=== PATIENT | female | born 1955 | race Caucasian/White ===

== ENCOUNTER 2016-08-12 08:01 | Inpatient (IN) | payer OTHER ==
[~2016-08-12] VITALS: Ht 162.6 cm; Wt 82.4 kg
[~2016-08-12 08:01] MED LIST: ACETAMINOPHEN TAB 650MG DOSE (2X325MG) PO PRN; BISACODYL 10 MG SUPP PR PRN; LEVALBUTEROL 1.25 MG/0.5 ML CONCENTRATE NEB NEB PRN; NORCO, ANEXSIA 5/325MG TABLET (HYDROcodone/ACETAMINOPHEN) PO PRN; ONDANSETRON 4MG/2ML VIAL (J2405) IV PRN; PERCOCET 5MG/325MG TAB PO PRN
[2016-08-12] MEDS: MOM 30ML SUSPENSION UDC PO SCH (09:00)
[2016-08-12] MEDS: HEPARIN SOD (PORCINE) 5000 UNITS/ML VIAL SC SCH ×2 (09:00→20:51)
[2016-08-12] MEDS: DOCUSATE SODIUM 100 MG CAP PO SCH ×2 (09:00→20:53)
[2016-08-12 12:25] VITALS: BP 148/77
[2016-08-12] MEDS ORDERED: REST0.05 OU (13:03)
[2016-08-12] MEDS ORDERED: TYLE325T5 PO (13:03)
[2016-08-12] MEDS ORDERED: ATEN25TA PO (13:03)
[2016-08-12] MEDS ORDERED: LEVO88TA3 PO (13:03)
[2016-08-12] MEDS ORDERED: ADVI200T PO (13:03)
[2016-08-12] MEDS ORDERED: SIMV20TA2 PO (13:03)
[2016-08-12] MEDS ORDERED: METR0.00 TOP (13:04)
[2016-08-12 13:26] LABS: BASO # 0.1 K/mm3 (0.0-0.2); BASO % 0.9 % (0.0-1.0); EOS # 0.2 K/mm3 (0.0-0.50); EOS % 3.2 % (0.0-3.0); LARGE UNSTAINED CELL # 0.1 K/mm3 (0.0-0.4); LYMPH # 2.2 K/mm3 (1.5-4.5); LYMPH % 29.2 % (24.0-44.0); MEAN CORPUSCULAR HEMOGLOBIN 31.1 pg (27.0-33.0); MEAN CORPUSCULAR HGB CONC 33.7 g/dl (32.0-36.5); MEAN CORPUSCULAR VOLUME 92.4 fl (80.0-96.0); MONO # 0.4 K/mm3 (0.0-0.8); MONO % 6.1 % (0.0-5.0); NEUTROPHILS # 4.1 K/mm3 (1.8-7.7); NEUTROPHILS % 58.6 % (36.0-66.0); PLATELET COUNT, AUTOMATED 233 k/mm3 (150-450); RED CELL DISTRIBUTION WIDTH 12.5 % (11.5-14.5)
[2016-08-12 13:42] LABS: ANION GAP 10 MEQ/L (8-16); BLOOD UREA NITROGEN 18 MG/DL (7-18); CALCIUM LEVEL 9.2 MG/DL (8.5-10.1); CARBON DIOXIDE LEVEL 25 MEQ/L (21-32); CHLORIDE LEVEL 107 MEQ/L (98-107); CREATININE FOR GFR 0.73 MG/DL (0.55-1.02); GLOMERULAR FILTRATION RATE > 60.0 (>51); GLUCOSE, FASTING 93 MG/DL (70-105); POTASSIUM SERUM 4.3 MEQ/L (3.5-5.1); SODIUM LEVEL 142 MEQ/L (136-145)
[2016-08-12] MEDS ORDERED: LIDOCAINE 1% MDV 20ML VIAL As Ordered ONE (14:16)
[2016-08-12] MEDS: LEVALBUTEROL 1.25 MG/0.5 ML CONCENTRATE NEB NEB SCH ×2 (14:24→19:39)
[2016-08-12] MEDS: PANTOPRAZOLE 40MG TAB (PROTONIX) PO SCH (14:35)
--- NOTE | 2016-08-12 15:23 | REP ---
CHEST, TWO VIEWS: HISTORY: Pleural effusion. The lungs are clear. A small right pleural effusion is present. The heart is normal in size. The pulmonary vasculature is normal in appearance. The bony structure is intact. The patient is status post right mastectomy. IMPRESSION: Small right pleural effusion. Signed by Jd Leiva MD 08/12/2016 03:25 P
[2016-08-12 17:15] VITALS: BP 161/83
[2016-08-12 17:23] LABS: RBC PLEURAL FLUID < 10 (<10mm3 cells/uL); TNC PLEURAL FLUID 872 cells/uL (0-20)
--- NOTE | 2016-08-12 17:23 | REP ---
ULTRASOUND GUIDED RIGHT THYROID BIOPSY: The procedure was performed under the direct supervision of Dr. Geiger. The patient has a history of intensely increased uptake of activity involving the right thyroid seen on a previous PET scan performed at [facility] on 07/24/2016. The risks and benefits of the procedure were explained to the patient and informed consent was obtained. The right thyroid was localized using ultrasound guidance. The skin was prepped and draped in a sterile fashion. 1% Xylocaine was used as a local anesthetic. Using ultrasound guidance 4 fine-needle aspirations were obtained using 25-gauge needles. The patient tolerated the procedure well and there were no immediate complications. Reviewed by OCTAVIO Fay 08/13/2016 01:28 PEdited and Signed by Yovany Geiger MD 08/13/2016 08:04 P
[2016-08-12 17:24] LABS: BF DIFF IF INDICATED? YES (NO)
[2016-08-12 17:30] VITALS: BP 137/72
[2016-08-12] MEDS ORDERED: IBUPROFEN 400 MG TAB PO PRN (18:00)
[2016-08-12] MEDS: KETOROLAC 30 MG/ML VIAL (J1885) IV SCH ×2 (18:04→20:53)
[2016-08-12 18:34] LABS: LDH, BODY FLUID 115 U/L (NOT ESTABLISHED); TOTAL PROTEIN, BODY FLUID 4.4 G/DL (NOT ESTABLISHED)
[2016-08-12 19:13] LABS: CC BF DIFF EXAM UNSPUN
[2016-08-12 20:00] VITALS: BP 113/60
[2016-08-12 20:52] VITALS: BP 113/60
[2016-08-12] MEDS ORDERED: ATENOLOL 25 MG TAB PO SCH (21:00)
[2016-08-12] MEDS ORDERED: SIMVASTATIN 20 MG TAB PO SCH (21:00)
[2016-08-13] VITALS: BP 121/69
[2016-08-13] MEDS: LEVALBUTEROL 1.25 MG/0.5 ML CONCENTRATE NEB NEB SCH ×2 (01:11→07:07)
[2016-08-13] MEDS: KETOROLAC 30 MG/ML VIAL (J1885) IV SCH ×2 (02:49→09:00)
[2016-08-13 04:00] VITALS: BP 115/65
[2016-08-13 05:30] LABS: BASO % 0.3 % (0.0-1.0); EOS # 0.2 K/mm3 (0.0-0.50); EOS % 2.1 % (0.0-3.0); LARGE UNSTAINED CELL # 0.1 K/mm3 (0.0-0.4); LARGE UNSTAINED CELL % 1.2 % (0.0-4.0); LYMPH # 1.5 K/mm3 (1.5-4.5); LYMPH % 16.7 % (24.0-44.0); MEAN CORPUSCULAR HEMOGLOBIN 30.7 pg (27.0-33.0); MEAN CORPUSCULAR HGB CONC 33.5 g/dl (32.0-36.5); MEAN CORPUSCULAR VOLUME 91.5 fl (80.0-96.0); MONO # 0.5 K/mm3 (0.0-0.8); MONO % 5.5 % (0.0-5.0); NEUTROPHILS # 6.7 K/mm3 (1.8-7.7); NEUTROPHILS % 74.3 % (36.0-66.0); PLATELET COUNT, AUTOMATED 207 k/mm3 (150-450); RED CELL DISTRIBUTION WIDTH 12.5 % (11.5-14.5)
[2016-08-13 05:50] LABS: ANION GAP 9 MEQ/L (8-16); BLOOD UREA NITROGEN 17 MG/DL (7-18); CALCIUM LEVEL 8.1 MG/DL (8.5-10.1); CARBON DIOXIDE LEVEL 26 MEQ/L (21-32); CHLORIDE LEVEL 107 MEQ/L (98-107); CREATININE FOR GFR 0.81 MG/DL (0.55-1.02); GLOMERULAR FILTRATION RATE > 60.0 (>51); GLUCOSE, FASTING 96 MG/DL (70-105); POTASSIUM SERUM 3.9 MEQ/L (3.5-5.1); SODIUM LEVEL 142 MEQ/L (136-145)
[2016-08-13] MEDS ORDERED: LEVOTHYROXINE 0.088 MG TAB (88 MCG) PO SCH (06:00)
[2016-08-13 07:25] VITALS: BP 120/68
[2016-08-13] MEDS: PANTOPRAZOLE 40MG TAB (PROTONIX) PO SCH (09:00)
[2016-08-13] MEDS: DOCUSATE SODIUM 100 MG CAP PO SCH (09:00)
[2016-08-13] MEDS: HEPARIN SOD (PORCINE) 5000 UNITS/ML VIAL SC SCH (09:00)
[2016-08-13] MEDS: MOM 30ML SUSPENSION UDC PO SCH (09:00)
--- NOTE | 2016-08-13 09:14 | REP ---
TWO VIEW CHEST: Two views of the chest are performed and compared to prior study of 08/12/2016. Right inferior pigtail drainage catheter is again seen. There is no pneumothorax. There is mild elevation of the right hemidiaphragm with mild discoid atelectasis along the right hemidiaphragm. The cardiomediastinal silhouette is unremarkable and unchanged. Multiple metallic clips are seen in the axillary regions bilaterally. There are mild degenerative changes of the spine. IMPRESSION: Stable exam. Signed by Yovany Geiger MD 08/13/2016 08:05 P
--- NOTE | 2016-08-14 08:32 | HPE ---
DATE OF ADMISSION: 08/12/2016 CHIEF COMPLAINT: Right pleural effusion and cough. HISTORY OF PRESENT ILLNESS: The patient is a 61-year-old white female who was first found to have breast cancer in the left breast in 2005 and was found to have another breast cancer in the right breast. 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 She underwent chemotherapy with Adriamycin and Cytoxan, and then was found to have a lobular carcinoma of the right breast. This measured 7 cm. It too was ER positive, but IA negative and HER2 negative. She then underwent bilateral mastectomies with reconstruction. A few weeks ago she developed what was thought to be a cold with a cough and scant sputum production. This was not accompanied by fever, chills or sweats. It was also not accompanied by shortness of breath. There was no weight loss. No dysphagia. CT scan done of the chest showed her to have a right sided pleural effusion. This was attempted to be tapped at [facility] but without success. PET scan was also undertaken, which showed high uptake in the right thyroid. She was admitted today for drainage of her pleural effusion. My suspicion is that the pleural effusion is going to be fibrinous and it is going to need a TPA pleurolysis, as it could not be removed at [facility]. PAST MEDICAL HISTORY: 1. Hypothyroidism. 2. Hypertension. 3. Hypercholesterolemia. MEDICATIONS: At home: - atenolol 25 mg daily - ibuprofen 200 mg as needed for pain - Synthroid 88 mg daily - Restasis 0.5% OU as needed for dry eyes - simvastatin 20 mg at night - Tylenol 325 mg as needed for pain PAST SURGICAL HISTORY: The above mastectomies. FAMILY HISTORY: Father due to heart disease. Mother is alive and well. HABITS: Has never smoked. Denies alcohol use. 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 EXPOSURES: No dogs. She has one cat. She does have three birds at home. TRAVEL HISTORY: She has been to [place] in the remote past and to [facility]. She visited [facility] last year. REVIEW OF SYSTEMS: CONSTITUTIONAL: See history of present illness. Without fevers, chills, sweats, night sweats or weight loss. EYES: Without diplopia. Without amaurosis fugax. Without prior jaundice. NOSE: Without epistaxis. MOUTH: Has her own teeth. PULMONARY: See history of present illness. Without shortness of breath but with cough. Without sputum production. Without chest pain or chest discomfort. CARDIAC: Without prior myocardial infarction, but does have hypertension. Without angina. Without chest pain. Without intermittent claudication. Without orthopnea or paroxysmal nocturnal dyspnea. GASTROINTESTINAL: Without melena or hematochezia, diarrhea or constipation, nausea or vomiting. Without abdominal pain or hematemesis. GENITOURINARY: Without dysuria, hematuria, or prior history of renal stones. NEUROLOGIC: Without paresthesias, paralysis or prior seizures. PSYCHIATRIC: Without pathological anxieties, depressions, or psychoses. ENDOCRINE: Without diabetes, but with hypothyroidism. PHYSICAL EXAMINATION: Well developed, well nourished, white female in no acute distress. VITAL SIGNS: Temperature is 97.1, heart rate is 66 and in a sinus rhythm, respiratory rate of 18 without the use of accessory muscles. She is 99% saturated on room air. Blood pressure is 137/72. EYES: Pupils are equal, round and reactive to light. Extraocular muscles intact. Sclerae nonicteric. NOSE: Without deformity. MOUTH: Shows mucous membranes to be pink and moist. Lips and commissures without lesions. There is no thrush. NECK: Supple. There is no jugular venous distention (JVD). No subcutaneous emphysema. Trachea is midline. There is thyromegaly with a palpable mass just to the right of the sternal notch. She has 2+ carotid upstrokes without bruits or lymphadenopathy. LUNGS: Lungs show minimally decreased breath sounds in the right lower lobe. Percussion note is dull at the right base. I hear no other wheezes, rhonchi or rales. CARDIAC EXAM: Without murmurs, clicks, gallops or rubs. I cannot feel her point of maximum impulse (PMI). S1, S2 are normal. ABDOMEN: Soft, nontender. Bowel sounds positive. There is no hepatomegaly. No costovertebral angle tenderness. EXTREMITIES: Show no pretibial edema. No calf tenderness. No differential swelling of the upper extremities. SKIN: Warm, dry and perfused without cyanosis or mottling, including that of the nail beds and knees. NEUROLOGIC: Shows II through XII intact with gross motor and gross sensation intact. Gait is not tested. PSYCHIATRIC: Shows her to be awake and alert, oriented times three with appropriate mood and affect and conversational. INVESTIGATIONS: Her white count is 7.0 with a hemoglobin and hematocrit of 14.9 and 44.1. Platelet count is 223 and differential shows 58% neutrophils, 29% lymphocytes, 6% monocytes. There are no immature forms. No toxic granulations. Her chemistries show normal electrolytes with a BUN and creatinine of 18 and 0.73, glucose of 93 and calcium 9.2. Chest x-ray shows blunting of the right costophrenic angle. I see no other infiltrates. Left costophrenic angle is sharp. The lateral chest x-ray shows pleural effusion on the right side. There is evidence of her bilateral mastectomies with hemoclips subcutaneously on both sides. IMPRESSION: 1. New right sided pleural effusion. 2. Status post bilateral breast cancers and bilateral mastectomies. 3. Hypertension. 4. Hypothyroidism. 5. Thyroid mass. PLAN AND DISCUSSION: I will have x-ray place a pigtail catheter in the pleural effusion. If it does not drain, as I expect it will not, we will undertake a TPA pleurolysis. We will also do a needle biopsy of the thyroid.
--- NOTE | 2016-08-14 09:51 | DSES ---
DATE OF ADMISSION: 08/12/2016 DATE OF DISCHARGE: 08/13/2016 DISCHARGE DIAGNOSES: 1. Right pleural effusion, probably malignant. 2. Metastatic breast cancer to the spine. 3. Hypertension. 4. Hypothyroidism. 5. Thyroid mass, final pathology pending. HOSPITAL COURSE: The patient is a 61-year-old white female who was found to have breast cancer in 2005 in the left breast and then found to have another breast cancer in 2008. She underwent bilateral mastectomies with reconstruction. A few weeks prior to admission she developed what was thought was a cold with a cough. A CT scan was undertaken, which showed a moderate right-sided pleural effusion. This was attempted to be tapped in [facility] without success. She was therefore referred here. With the expectation that she was going to need a tPA pleurolysis, I admitted and asked x-ray to place a pigtail catheter in the right pleura. She eventually drained over 300 mL of fluid, which was found to be lymphocytic with 100% lymphocytes, normoglycemic and exudative with a serum lactic dehydrogenase of 119 and a fluid dehydrogenase of 115. Cytology was nondiagnostic. However, the cellblock remains to be processed. She drained very little over the night after the initial 300 mL came out in the first 12 hours. Therefore, the catheter was removed. I found no reason to keep her another day and therefore, I am discharging her with final pathology to be called to her in the next couple days. I counseled her that we should think of the worst-case scenario and assume that it is going to be a malignant pleural effusion. She is being discharge on her home medications, which include: - Synthroid 88 mcg every day - Restasis as needed, dry eyes - simvastatin 20 mg nightly - atenolol 25 mg nightly - Tylenol as needed, pain I will see her back in the office in 7-10 days in post hospitalization followup. Her chest x-ray on discharge showed a sharp right costophrenic angle without infiltrates.
--- NOTE | 2016-08-15 11:59 | REP ---
TWO VIEW CHEST: Two views of the chest are performed. There is placement of right sided pigtail drainage catheter. Right pleural fluid is no longer present. There is no pneumothorax. No other acute changes are seen when compared with the prior study the same day. IMPRESSION: Placement of right inferior pigtail drainage catheter. Pleural fluid has resolved. There is no pneumothorax. Signed by Yovany Geiger MD 08/15/2016 04:42 P
== END 2016-08-13 10:39 | disposition home or self-care (01) | DRG 343 ==
LOC: M PCU 12:12
PROVIDERS: ADMIT Thoracic Surgery (Cardiothoracic Vascular Surgery); ATTEND Thoracic Surgery (Cardiothoracic Vascular Surgery)
PROC: 0W9930Z Drainage of Right Pleural Cavity with Drainage Device, Percutaneous Approach (ICD-10-PCS; principal; 2016-08-12)
PROC: 0GBH3ZX Excision of Right Thyroid Gland Lobe, Percutaneous Approach, Diagnostic (ICD-10-PCS; 2016-08-12)
DX: C79.51 Secondary malignant neoplasm of bone (principal); J91.0 Malignant pleural effusion; I10 Essential (primary) hypertension; E03.9 Hypothyroidism, unspecified; E78.00 Pure hypercholesterolemia, unspecified; D34 Benign neoplasm of thyroid gland; H04.129 Dry eye syndrome of unspecified lacrimal gland; Z90.13 Acquired absence of bilateral breasts and nipples; Z79.899 Other long term (current) drug therapy; Z92.21 Personal history of antineoplastic chemotherapy; Z85.3 Personal history of malignant neoplasm of breast; Z82.49 Family history of ischemic heart disease and other diseases of the circulatory system

== ENCOUNTER → 2016-08-29 | Outpatient (CLI) | payer OTHER ==
[~2016-08-29] MED LIST changes: -ACETAMINOPHEN TAB 650MG DOSE (2X325MG) PO PRN; +ADVI200T PO; +ATEN25TA PO; -BISACODYL 10 MG SUPP PR PRN; -LEVALBUTEROL 1.25 MG/0.5 ML CONCENTRATE NEB NEB PRN; +LEVO88TA3 PO; +METR0.00 TOP; -NORCO, ANEXSIA 5/325MG TABLET (HYDROcodone/ACETAMINOPHEN) PO PRN; -ONDANSETRON 4MG/2ML VIAL (J2405) IV PRN; -PERCOCET 5MG/325MG TAB PO PRN; +REST0.05 OU; +SIMV20TA2 PO; +TYLE325T5 PO
--- NOTE | 2016-08-29 10:14 | REP ---
Clinical: Pleural effusion. Technique: PA and lateral. Comparison: 08/13/2016. Findings: Previous pigtail catheter in the right lung base has been removed. Moderate right pleural effusion and right basilar atelectasis is significantly increased when compared to prior examination. No aerated lung new appear relatively stable and otherwise clear. The patient is status post bilateral axillary node dissection and right mastectomy. Skeletal structures are intact. Impression: Moderate right pleural effusion and right basilar atelectasis increased from prior examination. No chest tube identified on current examination. Signed by Venu Scott MD 08/29/2016 10:05 A
== END ==
LOC: M SMT 09:43
PROVIDERS: ATTEND Thoracic Surgery (Cardiothoracic Vascular Surgery)
DX: J90 Pleural effusion, not elsewhere classified (principal); J98.11 Atelectasis

== ENCOUNTER → 2016-09-30 | Outpatient (CLI) | payer BC ==
[~2016-09-30] MED LIST changes: +FEMA2.5T4 PO; +IBRA125C PO
[2016-09-30 18:22] LABS: ANION GAP 7 MEQ/L (8-16); BLOOD UREA NITROGEN 13 MG/DL (7-18); CALCIUM LEVEL 9.2 MG/DL (8.5-10.1); CARBON DIOXIDE LEVEL 28 MEQ/L (21-32); CHLORIDE LEVEL 107 MEQ/L (98-107); CREATININE FOR GFR 0.85 MG/DL (0.55-1.02); GLOMERULAR FILTRATION RATE > 60.0 (>51); GLUCOSE, FASTING 99 MG/DL (70-105); POTASSIUM SERUM 4.7 MEQ/L (3.5-5.1); SODIUM LEVEL 142 MEQ/L (136-145)
[2016-09-30 18:38] LABS: INR 1.03
[2016-09-30 18:58] LABS: MEAN CORPUSCULAR HEMOGLOBIN 31.3 pg (27.0-33.0); MEAN CORPUSCULAR HGB CONC 34.1 g/dl (32.0-36.5); MEAN CORPUSCULAR VOLUME 91.8 fl (80.0-96.0); PLATELET COUNT, AUTOMATED 145 k/mm3 (150-450); RED CELL DISTRIBUTION WIDTH 14.1 % (11.5-14.5); WHITE BLOOD COUNT 3.3 K/mm3 (4.0-10.0)
[2016-09-30 20:36] LABS: BANDS 1 % (< 11)
--- NOTE | 2016-09-30 21:58 | REP ---
CHEST X-RAY: CLINICAL: Malignant effusion. Chest pain. TECHNIQUE: PA and lateral. COMPARISON: 08/29/2016 FINDINGS: Moderate right pleural effusion is again appreciated and minimally increased from prior examination. Underlying perihilar and right lower lobe atelectasis suggested. The aerated lung new are otherwise without further acute process. No pneumothorax. Prior right mastectomy and bilateral axillary node dissection suggested. Skeletal structures are intact and relatively normal. IMPRESSION: Moderate right pleural effusion and right lower lobe atelectasis may be slightly increased from prior examination. Unreviewed
== END ==
LOC: M SMT 09:46
PROVIDERS: ATTEND Thoracic Surgery (Cardiothoracic Vascular Surgery)
DX: Z01.818 Encounter for other preprocedural examination (principal); J91.0 Malignant pleural effusion

== ENCOUNTER 2016-10-03 12:05 | Inpatient (IN) | payer BC ==
[2016-10-03] VITALS (8 sets, daily range): BP systolic 90–125; BP diastolic 54–77
[~2016-10-03] VITALS: Ht 162.6 cm; Wt 80.6 kg
[2016-10-03] MEDS: PANTOPRAZOLE 40MG INJ (PROTONIX) (C9113) IV SCH (09:00)
[2016-10-03] MEDS ORDERED: LR 1,000 ML IV SCH ×2 (12:30→16:45)
[2016-10-03] MEDS ORDERED: ceFAZolin 1GM INJ (J0690) As Ordered ONE (12:38)
[2016-10-03] MEDS ORDERED: fentaNYL 100 MCG/2 ML INJECTION (J3010) As Ordered ONE ×3 (12:38→15:03)
[2016-10-03] MEDS ORDERED: MIDAZOLAM INJ 2 MG/2 ML VIAL (J2250) As Ordered ONE ×2 (12:38→14:51)
[2016-10-03 12:59] LABS: ABG BASE EXCESS 0.6 (-2.0-2.0); ABG HCO3 24.4 MEQ/L (22.0-26.0); ABG PARTIAL PRESSURE CO2 36.7 mmHg (35.0-45.0); ABG PARTIAL PRESSURE O2 93.1 mmHg (75.0-100.0); ABG TOTAL CO2 25.5 MEQ/L (22.0-29.0); ABG pH (ARTERIAL) 7.441 UNITS (7.350-7.450)
[2016-10-03] MEDS: fentaNYL 100 MCG/2 ML INJECTION (J3010) IV PRN ×2 (13:21→13:24)
[2016-10-03] MEDS: MIDAZOLAM INJ 2 MG/2 ML VIAL (J2250) IV PRN ×2 (13:21→13:22)
[2016-10-03] MEDS ORDERED: MUPIROCIN 2% OINT 22 GM TUBE TOP ONE (13:30)
[2016-10-03] MEDS ORDERED: ceFAZolin SOD 1 GM in D5W MINI-BAG PLUS 50 ML IV ONE (13:30)
[2016-10-03] MEDS ORDERED: EPIDURAL/PCA KEYS XX PRN (13:45)
[2016-10-03] MEDS ORDERED: NALOXONE INJ 0.4 MG/1 ML VIAL (J2310) IV PRN (13:45)
[2016-10-03] MEDS ORDERED: diphenhydrAMINE INJ 50MG/ML VIAL (J1200) IV PRN (13:45)
[2016-10-03] MEDS ORDERED: ONDANSETRON 4MG/2ML VIAL (J2405) IV PRN ×3 (13:45→16:45)
[2016-10-03] MEDS ORDERED: WALLBOXKEY XX PRN (13:45)
[2016-10-03] MEDS ORDERED: METOCLOPRAMIDE INJ 10MG/2ML VIAL (J2765) IV PRN (13:45)
[2016-10-03] MEDS ORDERED: SCLEROSOL INTRAPLEURAL AEROSOL As Ordered ONE (13:46)
[2016-10-03] MEDS ORDERED: BUPIVACAINE HCL 0.5% 10 ML VIAL As Ordered ONE (13:46)
[2016-10-03] MEDS ORDERED: BUPIVACAINE LIPOSOME/PF 1.3% 20 ML VIAL (13.3MG/ML)(EXPAREL) As Ordered ONE (13:46)
[2016-10-03] MEDS ORDERED: zolPIDEM TARTRATE 5 MG TAB PO PRN (14:00)
[2016-10-03] MEDS ORDERED: PERCOCET 5MG/325MG TAB PO PRN ×3 (14:00→16:45)
[2016-10-03] MEDS: LEVALBUTEROL 1.25 MG/0.5 ML CONCENTRATE NEB NEB SCH ×2 (14:00→20:12)
[2016-10-03] MEDS ORDERED: NORCO, ANEXSIA 5/325MG TABLET (HYDROcodone/ACETAMINOPHEN) PO PRN (14:00)
[2016-10-03] MEDS ORDERED: BISACODYL 10 MG SUPP PR PRN (14:00)
[2016-10-03] MEDS ORDERED: LEVALBUTEROL 1.25 MG/0.5 ML CONCENTRATE NEB NEB PRN (14:00)
[2016-10-03] MEDS ORDERED: METOCLOPRAMIDE INJ 10MG/2ML VIAL (J2765) As Ordered ONE (14:51)
[2016-10-03] MEDS ORDERED: PROPOFOL 500 MG/50 ML VIAL As Ordered ONE (14:51)
[2016-10-03] MEDS ORDERED: dexameTHASONE 4 MG/ML 1ML VIAL (J1100) As Ordered ONE ×2 (14:51→15:09)
[2016-10-03] MEDS ORDERED: BUPIVACAINE HCL 0.25% 30 ML VIAL As Ordered ONE (15:03)
[2016-10-03] MEDS ORDERED: VECURONIUM BROMIDE 10 MG VIAL As Ordered ONE (15:09)
[2016-10-03] MEDS ORDERED: NEOSTIGMINE 1MG/ML 5 ML SYRINGE (J2710) As Ordered ONE (15:46)
[2016-10-03] MEDS ORDERED: GLYCOPYRROLATE INJ 0.2 MG/ML 2 ML VIAL As Ordered ONE (15:46)
[2016-10-03] MEDS ORDERED: ePHEDrine SULFATE 25 MG/5 ML(5MG/ML) SYRINGE As Ordered ONE (15:46)
[2016-10-03] MEDS ORDERED: ONDANSETRON 4MG/2ML VIAL (J2405) As Ordered ONE (15:46)
[2016-10-03] MEDS ORDERED: PHENYLephrine HCL 500 MCG/5 ML (100MCG/ML) SYRINGE (J2370) As Ordered ONE (15:47)
--- NOTE | 2016-10-03 16:11 | ECGEPIP ---
Stationary ECG Study [facility] Test Date: 2016-10-03 Pat Name: RACHELE ADDISON Department: Room: [place] [address] Gender: F Server Assistant: LETI : 1955 Requested By: Sea Morrow Order Number: [id number] Reading MD: Gen Still Measurements Intervals [place] Rate: 66 P: 2 OR: 159 QRS: 16 QRSD: 84 T: 52 QT: 415 QTc: 437 Interpretive Statements Normal sinus rhythm Normal EKG Comparison tracing not on file Electronically Signed On 10-03-2016 16:11:16 EDT by Gen Still
[2016-10-03] MEDS ORDERED: HYDROmorphone HCL 2 MG/ML 1ML VIAL (J1170) As Ordered ONE (16:35)
[2016-10-03] MEDS ORDERED: HYDROmorphone HCL 1 MG/ML SYRINGE (J1170) IV PRN (16:45)
[2016-10-03] MEDS ORDERED: MEPERIDINE INJ 25 MG/ML VIAL (J2175) IV PRN (16:45)
[2016-10-03] MEDS ORDERED: fentaNYL 100 MCG/2 ML INJECTION (J3010) IV PRN (16:45)
[2016-10-03] MEDS: FENTANYL/BUPIVACAINE/NACL BAG 250 ML EPIDURAL SCH (16:50)
[2016-10-03 16:51] LABS: ABG BASE EXCESS -2.1 (-2.0-2.0); ABG HCO3 23.9 MEQ/L (22.0-26.0); ABG PARTIAL PRESSURE CO2 45.7 mmHg (35.0-45.0); ABG PARTIAL PRESSURE O2 89.2 mmHg (75.0-100.0); ABG STANDARD HCO3 22.7 MEQ/L (22.0-26.0); ABG TOTAL CO2 25.3 MEQ/L (22.0-29.0); ABG pH (ARTERIAL) 7.336 UNITS (7.350-7.450)
[2016-10-03 17:17] LABS: BASO % 0.9 % (0.0-1.0); LARGE UNSTAINED CELL # 0.1 K/mm3 (0.0-0.4); LARGE UNSTAINED CELL % 2.5 % (0.0-4.0); LYMPH # 1.1 K/mm3 (1.5-4.5); LYMPH % 38.1 % (24.0-44.0); MEAN CORPUSCULAR HEMOGLOBIN 32.5 pg (27.0-33.0); MEAN CORPUSCULAR VOLUME 92.7 fl (80.0-96.0); MONO # 0.1 K/mm3 (0.0-0.8); MONO % 3.9 % (0.0-5.0); NEUTROPHILS # 1.5 K/mm3 (1.8-7.7); NEUTROPHILS % 53.6 % (36.0-66.0); PLATELET COUNT, AUTOMATED 176 k/mm3 (150-450); RED CELL DISTRIBUTION WIDTH 14.4 % (11.5-14.5); WHITE BLOOD COUNT 2.8 K/mm3 (4.0-10.0)
[2016-10-03 17:23] LABS: ANION GAP 8 MEQ/L (8-16); BLOOD UREA NITROGEN 14 MG/DL (7-18); CALCIUM LEVEL 8.1 MG/DL (8.5-10.1); CARBON DIOXIDE LEVEL 27 MEQ/L (21-32); CHLORIDE LEVEL 107 MEQ/L (98-107); CREATININE FOR GFR 0.69 MG/DL (0.55-1.02); GLOMERULAR FILTRATION RATE > 60.0 (>51); GLUCOSE, FASTING 118 MG/DL (70-105); POTASSIUM SERUM 4.1 MEQ/L (3.5-5.1); SODIUM LEVEL 142 MEQ/L (136-145)
[2016-10-03] MEDS: KCL 20MEQ IN D5/NS 1000ML 1,000 ML IV SCH (17:38)
[2016-10-03 17:46] LABS: TOTAL PROTEIN, BODY FLUID 4.7 G/DL (NOT ESTABLISHED)
[2016-10-03 17:53] LABS: LDH, BODY FLUID 173 U/L (NOT ESTABLISHED)
[2016-10-03] MEDS: HEPARIN SOD (PORCINE) 5000 UNITS/ML VIAL SC SCH (19:01)
[2016-10-03] MEDS: KETOROLAC 30 MG/ML VIAL (J1885) IV SCH (19:02)
[2016-10-03 19:06] LABS: BF DIFF IF INDICATED? YES (NO); RBC PLEURAL FLUID 20 (<10mm3 cells/uL); TNC PLEURAL FLUID 1451 cells/uL (0-20)
[2016-10-03 19:11] LABS: CC BF DIFF EXAM CYTOCENTRIFUGE
[2016-10-03] MEDS: ATENOLOL 25 MG TAB PO SCH (21:18)
[2016-10-03] MEDS: SIMVASTATIN 20 MG TAB PO SCH (21:18)
[2016-10-03] MEDS: DOCUSATE SODIUM 100 MG CAP PO SCH (21:19)
[2016-10-03] MEDS: ceFAZolin SOD 1 GM in D5W MINI-BAG PLUS 50 ML IV SCH (21:19)
[2016-10-04] VITALS (20 sets, daily range): BP systolic 90–111; BP diastolic 51–62; O2SAT 93–99
[2016-10-04] MEDS: KETOROLAC 30 MG/ML VIAL (J1885) IV SCH ×4 (00:28→18:49)
[2016-10-04] MEDS: HEPARIN SOD (PORCINE) 5000 UNITS/ML VIAL SC SCH ×2 (01:29→13:30)
[2016-10-04] MEDS: LEVALBUTEROL 1.25 MG/0.5 ML CONCENTRATE NEB NEB SCH ×4 (02:00→21:36)
[2016-10-04] MEDS: LEVOTHYROXINE 0.088 MG TAB (88 MCG) PO SCH (05:06)
[2016-10-04] MEDS: ceFAZolin SOD 1 GM in D5W MINI-BAG PLUS 50 ML IV SCH ×3 (05:15→22:10)
--- NOTE | 2016-10-04 05:40 | REP ---
PORTABLE CHEST: AP portable view of the chest is performed and compared to prior study of 09/30/2016. Right chest tube is seen. There is no evidence of a pneumothorax. There is elevation of the right hemidiaphragm. Interstitial opacities in the right lung base are noted. Heart is normal in size. No infiltrate is seen in the left lung. Multiple metallic clips are seen in the axillary regions bilaterally. IMPRESSION: Placement of right chest tube. No pneumothorax. Signed by Yovany Geiger MD 10/04/2016 04:33 P
[2016-10-04 05:50] LABS: ABG BASE EXCESS 0.4 (-2.0-2.0); ABG HCO3 25.3 MEQ/L (22.0-26.0); ABG PARTIAL PRESSURE CO2 41.7 mmHg (35.0-45.0); ABG PARTIAL PRESSURE O2 138.5 mmHg (75.0-100.0); ABG STANDARD HCO3 24.8 MEQ/L (22.0-26.0); ABG TOTAL CO2 26.5 MEQ/L (22.0-29.0)
[2016-10-04 06:05] LABS: ANION GAP 8 MEQ/L (8-16); BLOOD UREA NITROGEN 9 MG/DL (7-18); CALCIUM LEVEL 8.1 MG/DL (8.5-10.1); CARBON DIOXIDE LEVEL 27 MEQ/L (21-32); CHLORIDE LEVEL 106 MEQ/L (98-107); CREATININE FOR GFR 0.67 MG/DL (0.55-1.02); GLOMERULAR FILTRATION RATE > 60.0 (>51); GLUCOSE, FASTING 141 MG/DL (70-105); POTASSIUM SERUM 4.3 MEQ/L (3.5-5.1); SODIUM LEVEL 141 MEQ/L (136-145)
[2016-10-04 06:07] LABS: MEAN CORPUSCULAR HGB CONC 35.1 g/dl (32.0-36.5); MEAN CORPUSCULAR VOLUME 94.1 fl (80.0-96.0); PLATELET COUNT, AUTOMATED 169 k/mm3 (150-450); RED CELL DISTRIBUTION WIDTH 14.7 % (11.5-14.5); WHITE BLOOD COUNT 3.1 K/mm3 (4.0-10.0)
[2016-10-04 07:18] LABS: BANDS 1 % (< 11)
[2016-10-04 07:19] LABS: ANISOCYTOSIS 1+
[2016-10-04] MEDS: KCL 20MEQ IN D5/NS 1000ML 1,000 ML IV SCH (08:25)
[2016-10-04] MEDS ORDERED: PANTOPRAZOLE 40MG TAB (PROTONIX) PO SCH (09:00)
[2016-10-04] MEDS: PANTOPRAZOLE 40MG INJ (PROTONIX) (C9113) IV SCH (09:57)
[2016-10-04] MEDS: MOM 30ML SUSPENSION UDC PO SCH (09:57)
[2016-10-04] MEDS: DOCUSATE SODIUM 100 MG CAP PO SCH ×2 (09:58→22:11)
--- NOTE | 2016-10-04 09:59 | RO ---
DATE OF PROCEDURE: 10/03/2016 PREPROCEDURE DIAGNOSIS: Malignant pleural effusion, recurrent, right side. POSTPROCEDURE DIAGNOSIS: Malignant pleural effusion, recurrent, right side. 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 FINDINGS: Bronchoscopy revealed a normal branching tracheobronchial tree. There were no intrabronchial lesions and there were scant secretions. The VATS exploration showed multiple numerous studs over the pleurodiaphragmatic surfaces. These were biopsied and sent for permanent pathological examination. DESCRIPTION OF PROCEDURE: Under satisfactory single lumen tube endotracheal intubation, bronchoscope was placed down the tracheobronchial tree. There were no intrabronchial lesions seen. There is normal branching pattern. The patient then underwent double lumen endotracheal intubation and was turned onto the left lateral decubitus position. The patient was prepped and draped in a sterile fashion and a thoracoscopy VATS incision was made in the midclavicular line, the approximate 6th intercostal space. A 5 mm port was placed all the while insufflating the port and pushing along the way as the port went through. The scope was then placed and the above findings were noted. Another port was placed slightly posteriorly and inferiorly and pleural biopsies were taken of both the parietal pleural surface and diaphragmatic surface. Talc was then uniformly insufflated throughout the pleural cavity with particular attention to the costophrenic angles. At the end of the insufflation of the talc, edematous tiers could be seen coming from the chest wall, indicating the start of an inflammatory reaction. Two chest tubes were placed, one in the costophrenic angle and one in the posterior vertebral gutter. The lung was inflated. A five level rib block consisting of Marcaine and Exparel was instilled. The incisions were infiltrated with Marcaine additionally. There were only two VATS incisions and these were used for the chest tubes. The patient tolerated the procedure well and left the operating room in satisfactory condition for the recovery room.
--- NOTE | 2016-10-04 10:52 | REP ---
CHEST TWO VIEWS: HISTORY: Pleural effusion. COMPARISON: 10/03/2016 There is elevation of the right hemidiaphragm. Increased density is present in the right lower lobe consistent with atelectasis or infiltrate. The left lung is clear. The heart is normal in size. The pulmonary vasculature is normal in appearance. The bony structure is intact. Two chest tubes are present in the right hemithorax. There is no pneumothorax. IMPRESSION: 1. Right lower lobe atelectasis or infiltrate. 2. Two chest tubes are present in the right hemithorax. There is no pneumothorax. Signed by Jd Leiva MD 10/04/2016 10:56 A
[2016-10-04] MEDS: ACETAMINOPHEN TAB 650MG DOSE (2X325MG) PO PRN (13:48)
--- NOTE | 2016-10-04 16:29 | IPN ---
DATE: 10/04/2016 This is the first postoperative day for Mrs. Branham after her talc pleurodesis and pleural biopsies. She has had a stable surgery and she is not complaining of any pain this morning. His vital signs shows a Maximum temperature (T-max) of 100.7 with a heart rate that ranges between 82-57 in a sinus rhythm, respiratory rate of 18-20 without the use of accessory muscles who is 98-97% saturated on 2 liters nasal cannula. Blood pressure is ranging between 94/51 to 111/57. Her intake and output for the past 24 hours has been recorded as 1845 in and 950 out for a positivity of 895 mL. He has put out 250 mL from the chest tube and there is no air leak. Weight today is 83.2 kg compared to 80 kg yesterday. PHYSICAL EXAMINATION: LUNGS: Hr lungs show equal breath sounds from either side. I do not hear pleural friction rub. Percussion note is full to the diaphragm on either side. CARDIOVASCULAR EXAMINATION: Is without murmurs, clicks, gallops. or rubs. I cannot his point of maximal impulse (PMI). S1, S2 are normal. ABDOMEN: Is soft, nontender. Bowel sounds are positive. There is no hepatomegaly. No costovertebral angle (CVA) tenderness. EXTREMITIES: Show no pretibial edema. No calf tenderness. No differential swelling of the upper extremities. SKIN: Is warm, dry, and perfused without cyanosis or mottling, including that of the nail beds and the knees. NECK: Is supple. There is no jugular venous distention. No subcutaneous emphysema. Trachea is midline. HEENT: Mouth shows his mucous membranes to be pink and moist. Lips and commissures are without lesions. There is no thrush. Eyes: show his pupils to be equal and reactive. Extraocular muscles intact. Sclerae anicteric. NEUROLOGIC: Shows II-XII intact, along with gross motor and gross sensation intact. Gait is not tested. PSYCHIATRIC: Shows him to be awake and alert, oriented times three, with appropriate mood and affect, and conversational. Her white count is 3.1, with hemoglobin and hematocrit of 12.1 and 34.6. Platelet count is 169 and stable and differential shows 50% neutrophils, 1% bands, 42% lymphocytes and 5% monocytes. There are no immature forms. No toxic granulations. Electrolytes are normal with BUN and creatinine of 9 and 0.67. Glucose is 141 with a calcium of 8.1. Blood gases this morning showed a pH of 7.4 and PCO2 of 41, PO2 of 138. Her chest x-ray today shows her lung fully expanded to the chest wall. Costophrenic angles are sharp and there is no subcutaneous emphysema. I see no infiltrates. IMPRESSION: 1. Metastatic breast cancer to the pleura and pleural fluid. 2. Hypertension. 3. Hypothyroidism. PLAN AND DISCUSSION: We will continue her chest tube on suction for the next 3-4 days. I want to give the pleura enough time to the scarification process. So far I am very pleased with her post-operative course.
[2016-10-04] MEDS: FENTANYL/BUPIVACAINE/NACL BAG 250 ML EPIDURAL SCH (17:18)
[2016-10-04] MEDS ORDERED: SLF 3 ML SYR IV PRN (20:00)
[2016-10-04] MEDS: ATENOLOL 25 MG TAB PO SCH (21:00)
[2016-10-04] MEDS: SLF 3 ML SYR IV SCH (22:10)
[2016-10-04] MEDS: SIMVASTATIN 20 MG TAB PO SCH (22:11)
[2016-10-05] VITALS (19 sets, daily range): BP systolic 95–140; BP diastolic 50–83; O2SAT 90–99
[2016-10-05] MEDS: KETOROLAC 30 MG/ML VIAL (J1885) IV SCH ×4 (00:37→19:10)
[2016-10-05] MEDS: ACETAMINOPHEN TAB 650MG DOSE (2X325MG) PO PRN ×3 (00:50→23:23)
[2016-10-05] MEDS: LEVALBUTEROL 1.25 MG/0.5 ML CONCENTRATE NEB NEB SCH ×4 (01:56→20:21)
[2016-10-05] MEDS: HEPARIN SOD (PORCINE) 5000 UNITS/ML VIAL SC SCH ×2 (02:01→13:42)
[2016-10-05 05:27] LABS: BASO % 0.6 % (0.0-1.0); EOS % 0.4 % (0.0-3.0); LARGE UNSTAINED CELL # 0.1 K/mm3 (0.0-0.4); LARGE UNSTAINED CELL % 3.1 % (0.0-4.0); LYMPH # 1.3 K/mm3 (1.5-4.5); LYMPH % 34.3 % (24.0-44.0); MEAN CORPUSCULAR HEMOGLOBIN 31.5 pg (27.0-33.0); MEAN CORPUSCULAR HGB CONC 33.6 g/dl (32.0-36.5); MEAN CORPUSCULAR VOLUME 93.8 fl (80.0-96.0); MONO # 0.3 K/mm3 (0.0-0.8); MONO % 8.5 % (0.0-5.0); NEUTROPHILS # 2.1 K/mm3 (1.8-7.7); NEUTROPHILS % 53.1 % (36.0-66.0); PLATELET COUNT, AUTOMATED 164 k/mm3 (150-450); WHITE BLOOD COUNT 3.9 K/mm3 (4.0-10.0)
[2016-10-05 05:46] LABS: ANION GAP 5 MEQ/L (8-16); BLOOD UREA NITROGEN 12 MG/DL (7-18); CALCIUM LEVEL 7.8 MG/DL (8.5-10.1); CARBON DIOXIDE LEVEL 28 MEQ/L (21-32); CHLORIDE LEVEL 109 MEQ/L (98-107); CREATININE FOR GFR 0.66 MG/DL (0.55-1.02); GLOMERULAR FILTRATION RATE > 60.0 (>51); GLUCOSE, FASTING 107 MG/DL (70-105); POTASSIUM SERUM 3.9 MEQ/L (3.5-5.1); SODIUM LEVEL 142 MEQ/L (136-145)
[2016-10-05] MEDS: ceFAZolin SOD 1 GM in D5W MINI-BAG PLUS 50 ML IV SCH ×2 (06:07→13:43)
[2016-10-05] MEDS: LEVOTHYROXINE 0.088 MG TAB (88 MCG) PO SCH (06:08)
[2016-10-05] MEDS: SLF 3 ML SYR IV SCH ×3 (06:08→21:33)
[2016-10-05] MEDS: PANTOPRAZOLE 40MG TAB (PROTONIX) PO SCH (08:47)
[2016-10-05] MEDS: MOM 30ML SUSPENSION UDC PO SCH (08:47)
[2016-10-05] MEDS: DOCUSATE SODIUM 100 MG CAP PO SCH ×2 (08:47→21:00)
--- NOTE | 2016-10-05 15:08 | REP ---
CHEST, TWO VIEWS: HISTORY: Pleural effusion. COMPARISON: 10/04/2016 There is elevation of the right hemidiaphragm. Increased density is present in the right lower lobe consistent with atelectasis or infiltrate that appears slightly increased compared to the previous study. The left lung is clear. The heart is normal in size. The pulmonary vasculature is normal in appearance. The bony structure is intact. Two chest tubes are present in the right hemithorax. There is no definite pneumothorax. IMPRESSION: 1. Right lower lobe atelectasis or infiltrate, increased compared to the previous study. 2. There is no pneumothorax. Signed by Jd Leiva MD 10/05/2016 09:20 A
[2016-10-05] MEDS: FENTANYL/BUPIVACAINE/NACL BAG 250 ML EPIDURAL SCH (18:41)
[2016-10-05] MEDS: SIMVASTATIN 20 MG TAB PO SCH (21:00)
[2016-10-05] MEDS: ATENOLOL 25 MG TAB PO SCH (21:00)
[2016-10-06] VITALS (19 sets, daily range): BP systolic 111–128; BP diastolic 57–78; O2SAT 87–97
[2016-10-06] MEDS: LEVALBUTEROL 1.25 MG/0.5 ML CONCENTRATE NEB NEB SCH ×4 (00:29→19:43)
[2016-10-06] MEDS: HEPARIN SOD (PORCINE) 5000 UNITS/ML VIAL SC SCH ×2 (00:35→14:21)
[2016-10-06] MEDS: KETOROLAC 30 MG/ML VIAL (J1885) IV SCH ×4 (00:35→18:19)
[2016-10-06 05:29] LABS: EOS % 0.8 % (0.0-3.0); LARGE UNSTAINED CELL # 0.1 K/mm3 (0.0-0.4); LARGE UNSTAINED CELL % 2.8 % (0.0-4.0); LYMPH # 1.4 K/mm3 (1.5-4.5); MEAN CORPUSCULAR HEMOGLOBIN 31.1 pg (27.0-33.0); MEAN CORPUSCULAR HGB CONC 32.8 g/dl (32.0-36.5); MONO # 0.3 K/mm3 (0.0-0.8); MONO % 7.8 % (0.0-5.0); NEUTROPHILS # 2.1 K/mm3 (1.8-7.7); NEUTROPHILS % 54.6 % (36.0-66.0); PLATELET COUNT, AUTOMATED 215 k/mm3 (150-450); RED CELL DISTRIBUTION WIDTH 15.4 % (11.5-14.5); WHITE BLOOD COUNT 3.9 K/mm3 (4.0-10.0)
[2016-10-06 05:50] LABS: ANION GAP 5 MEQ/L (8-16); BLOOD UREA NITROGEN 8 MG/DL (7-18); CARBON DIOXIDE LEVEL 28 MEQ/L (21-32); CHLORIDE LEVEL 108 MEQ/L (98-107); CREATININE FOR GFR 0.56 MG/DL (0.55-1.02); GLOMERULAR FILTRATION RATE > 60.0 (>51); GLUCOSE, FASTING 93 MG/DL (70-105); POTASSIUM SERUM 4.2 MEQ/L (3.5-5.1); SODIUM LEVEL 141 MEQ/L (136-145)
[2016-10-06] MEDS: LEVOTHYROXINE 0.088 MG TAB (88 MCG) PO SCH (06:03)
[2016-10-06] MEDS: SLF 3 ML SYR IV SCH ×3 (06:03→21:21)
--- NOTE | 2016-10-06 08:27 | IPN ---
DATE: 10/05/2016 This is now the second postoperative day for Mrs. Branham. She has been up and around walking. Her pain is being well controlled at the incision and chest tube insertion sites. Her vital signs show a T-max of 100.6 with a heart rate that ranges between 74 and 71 and is sinus rhythm with a respiratory rate that is constant at 18, who is 95 to 94% saturated on room air and whose blood pressure is ranging between 95/52 to 107/56. Her intake and output the past 24 hours has been recorded as 2297 in and 1261 out for a positivity of a liter. She put out a 186 mL from the chest tube. She weighs 83.2 kg today, which is the same as yesterday. She has put out 1075 mL in urine output. On physical examination, she has normal vesicular sounds on either side with a few basilar crackles on the right side. I hear no friction rub. Percussion note is full to the diaphragm. Cardiac exam is without murmurs, clicks, gallops or rubs. I cannot feel her PMI. S1 and S2 are normal. Abdomen is soft, nontender. Bowel sounds are positive. There is no hepatomegaly. No CVA tenderness. Extremities show no pretibial edema. No calf tenderness. No differential swelling of the upper extremities. Her skin is warm, dry and perfused without cyanosis or mottling including that of the nail beds and the knees. Neck is supple. There is no jugular venous distention (JVD). No subcutaneous emphysema. Trachea is midline. Mouth shows her mucous membranes to be pink and moist. Lips and commissures without lesions. No thrush. Eyes show her pupils to be equal and reactive. Extraocular motors intact. Sclera nonicteric. Neuro shows II through XII intact along with gross motor and gross sensation intact. Gait is not tested. Psychiatric shows her to be awake and alert, oriented times three with appropriate mood and affect and conversational. Her white count today is 3.9 with hemoglobin and hematocrit of 10.8 and 32.1. Platelet count is 164 and stable. Differential shows 53% neutrophils, 34% lymphocytes, 8% monocytes. There are no immature forms. No toxic granulations. Her electrolytes are normal with a BUN and creatinine of 12 and 0.66, glucose of 107 and a calcium of 7.8. There are no blood gases on her today. Pleural fluid drained from the chest at operation showed a total nucleated cell count of 1451, 89% of which are lymphocytes. LDH was 173 with a corresponding serum LDH of 147, making it exudative and lymphocytic most consistent with her previously known pleural effusion. Final pathology is still pending on the pleural biopsies. Her chest x-ray shows what looks to be pleural thickening in the right lower hemithorax. This is where the majority of talc was placed, although she did have a uniform distribution to the upper hemithorax additionally. Costophrenic angles are sharp. Chest tube is in good place. There is some fluid in the major fissure on the right hand side. IMPRESSION: 1. Metastatic breast cancer to the pleura and pleural fluid. 2. Hypertension. 3. Hypothyroidism. PLAN AND DISCUSSION: I will take her off suction today. I will not diurese her as her blood pressure is still fairly soft. Otherwise, she is doing well. I plan to keep the chest tubes in for five days and will remove them on Friday.
[2016-10-06] MEDS: MOM 30ML SUSPENSION UDC PO SCH (09:12)
[2016-10-06] MEDS: PANTOPRAZOLE 40MG TAB (PROTONIX) PO SCH (09:12)
[2016-10-06] MEDS: DOCUSATE SODIUM 100 MG CAP PO SCH ×2 (09:13→21:00)
--- NOTE | 2016-10-06 15:13 | REP ---
CHEST, TWO VIEWS: HISTORY: Pleural effusion. COMPARISON: 10/05/2016 There is elevation of the right hemidiaphragm. Increased density is present in the right lower lobe, consistent with atelectasis or infiltrate, unchanged compared to the previous study. The left lung is clear. The heart is normal in size. The pulmonary vasculature is normal in appearance. The bony structure is intact. Two chest tubes are present in the right hemithorax. There is no definite pneumothorax. IMPRESSION: 1. Right lower lobe atelectasis or infiltrate, unchanged compared to the previous study. 2. There is no pneumothorax. Two chest tubes are present in the right hemithorax. Signed by Jd Leiva MD 10/06/2016 03:19 P
[2016-10-06] MEDS: ATENOLOL 25 MG TAB PO SCH (21:00)
[2016-10-06] MEDS: SIMVASTATIN 20 MG TAB PO SCH (21:20)
[2016-10-06] MEDS: FENTANYL/BUPIVACAINE/NACL BAG 250 ML EPIDURAL SCH (23:15)
[2016-10-07] VITALS (12 sets, daily range): BP systolic 109–138; BP diastolic 58–78; O2SAT 90–95
[2016-10-07] MEDS: LEVALBUTEROL 1.25 MG/0.5 ML CONCENTRATE NEB NEB SCH ×4 (00:42→20:00)
[2016-10-07] MEDS: KETOROLAC 30 MG/ML VIAL (J1885) IV SCH ×4 (00:51→18:32)
[2016-10-07] MEDS: HEPARIN SOD (PORCINE) 5000 UNITS/ML VIAL SC SCH ×2 (00:52→15:12)
[2016-10-07 05:28] LABS: BASO % 0.8 % (0.0-1.0); EOS % 1.4 % (0.0-3.0); LARGE UNSTAINED CELL # 0.1 K/mm3 (0.0-0.4); LARGE UNSTAINED CELL % 3.5 % (0.0-4.0); LYMPH # 1.3 K/mm3 (1.5-4.5); LYMPH % 35.8 % (24.0-44.0); MEAN CORPUSCULAR HEMOGLOBIN 31.3 pg (27.0-33.0); MEAN CORPUSCULAR HGB CONC 33.3 g/dl (32.0-36.5); MEAN CORPUSCULAR VOLUME 93.9 fl (80.0-96.0); MONO # 0.3 K/mm3 (0.0-0.8); MONO % 8.7 % (0.0-5.0); NEUTROPHILS # 1.8 K/mm3 (1.8-7.7); NEUTROPHILS % 49.8 % (36.0-66.0); PLATELET COUNT, AUTOMATED 256 k/mm3 (150-450); RED CELL DISTRIBUTION WIDTH 15.2 % (11.5-14.5); WHITE BLOOD COUNT 3.6 K/mm3 (4.0-10.0)
[2016-10-07 05:44] LABS: ANION GAP 5 MEQ/L (8-16); BLOOD UREA NITROGEN 11 MG/DL (7-18); CARBON DIOXIDE LEVEL 28 MEQ/L (21-32); CHLORIDE LEVEL 107 MEQ/L (98-107); CREATININE FOR GFR 0.61 MG/DL (0.55-1.02); GLOMERULAR FILTRATION RATE > 60.0 (>51); GLUCOSE, FASTING 89 MG/DL (70-105); POTASSIUM SERUM 4.1 MEQ/L (3.5-5.1); SODIUM LEVEL 140 MEQ/L (136-145)
[2016-10-07] MEDS: SLF 3 ML SYR IV SCH ×3 (06:06→20:46)
[2016-10-07] MEDS: LEVOTHYROXINE 0.088 MG TAB (88 MCG) PO SCH (06:06)
--- NOTE | 2016-10-07 07:49 | IPN ---
DATE: 10/04/2016 This is now the third postoperative day for Mrs. Branham. She is feeling much better today. Gratifyingly, she now shows a nice fever of 101. I am surprised she is feeling as well as she is feeling as she is generating the inflammatory response from the talc. Her vital signs show a T-max of 101.4 with a heart rate that ranges between 92 and 89 in a sinus rhythm, respiratory rate that is constant at 18 who is 94% saturated on room air and has blood pressures ranging between 128/61 to 111/57. Her intake and output over the past 24 hours have been recorded as 880 in and 2021 out for a negativity of 1300 mL. She has only put out 72 mL from the chest tube and there is no air leak. She weighs 81.9 kg today compared to 83.2 kg yesterday. I did give her some Lasix yesterday. On physical examination, I can now hear a faint pleural friction rub during inspiration on the right side. Percussion notes are full to the diaphragm. Left lung shows normal vesicular sounds. Cardiac exam is without murmurs, clicks, gallops or rubs. I cannot feel her PMI. S1 and S2 are normal. Abdomen is soft, nontender, bowel sounds are positive. There is no hepatomegaly. No CVA tenderness. Extremities show no pretibial edema. No calf tenderness. No differential swelling of the upper extremities. Skin is warm, dry and perfused without cyanosis or mottling including that of the nail beds and knees. Neck is supple. There is no jugular venous distention. No subcutaneous emphysema. Trachea is midline. Mouth shows her mucous membranes to be pink and moist. Lips and commissures are without lesions. No thrush. Eyes show her pupils to be equal and reactive. Extraocular motor intact. Sclera anicteric. Neuro shows II through XII intact with gross motor and gross sensation intact. Gait is not tested. Psychiatric shows her to be awake and alert, oriented times three with appropriate mood and affect and conversational. Her white count today is 3.9 slightly up from her baseline of 2.8. Hemoglobin and hematocrit are 10.7 and 32.8 with a platelet count of 250 which is stable. Differential shows 54% neutrophils, 33% lymphocytes and 7% monocytes. There are immature forms. No toxic granulations. Electrolytes are normal today with a BUN and creatinine of 8 and 0.56, calcium of 8.0 and a glucose of 93. Her chest x-ray today shows the costophrenic angles sharp with a diffuse haze in the right lower hemithorax consistent with pleural thickening and edema. Chest tube is in good place. I see no other infiltrates. There is some fluid in the major fissure on the right hand side. Posterior costophrenic angle is sharp. IMPRESSION: 1. Metastatic breast cancer to the pleura and pleural fluid. 2. Hypertension. 3. Hypothyroidism. PLAN AND DISCUSSION: I will again continue her on chest tube suction. I may discontinue that tomorrow and remove the chest tubes on Friday. We will continue to monitor her and closely will monitor the x-rays.
[2016-10-07] MEDS: PANTOPRAZOLE 40MG TAB (PROTONIX) PO SCH (08:21)
[2016-10-07] MEDS: MOM 30ML SUSPENSION UDC PO SCH (08:22)
[2016-10-07] MEDS: DOCUSATE SODIUM 100 MG CAP PO SCH ×2 (08:22→20:54)
[2016-10-07] MEDS: ACETAMINOPHEN TAB 650MG DOSE (2X325MG) PO PRN ×2 (12:40→23:31)
--- NOTE | 2016-10-07 14:26 | IPN ---
DATE: 10/07/2016 Mrs. Branham has had a stable 24 hours. She has been afebrile since 2:00 o'clock yesterday when she had a temperature of 100.1. Her pain is being well controlled. Her vital signs show a maximum temperature (t-max) of 100.1 and above. Heart rate ranges between 78 and 83 in a sinus rhythm. Respiratory rate is constant at 18. She is 95% saturated on room air. Her blood pressure is ranging between 130/76 to 115/69. Her intake and output for the past 24 hours has been recorded as 1536 in and 1035 out for a positivity of 500 mL. She has put out 35 mL from the chest tube today and 80 mL from the chest tube yesterday. Nothing has come out in the last 12 hours. There is no air leak. PHYSICAL EXAMINATION LUNGS: Her lungs show normal vesicular sounds on either side. There is a slight pleural friction rub on the right side. Percussion note is full to the diaphragm. CARDIAC EXAM: Without murmurs, clicks, gallops or rubs. I cannot feel her point of maximum impulse (PMI). S1, S2 are normal. ABDOMEN: Soft, nontender. Bowel sounds positive. There is no hepatomegaly. No costovertebral angle tenderness. EXTREMITIES: Show no pretibial edema. No calf tenderness. No differential swelling of the upper extremities. SKIN: Warm, dry and perfused without cyanosis or mottling, including that of the nail beds and knees. NECK: Supple. There is no jugular venous distention. No subcutaneous emphysema. Trachea is midline. MOUTH: Shows her mucous membranes to be pink and moist. Lips and commissures without lesions. There is no thrush. EYES: Show her pupils to be equal and reactive. Extraocular motion intact. Sclerae anicteric. NEUROLOGIC: Shows II through XII intact with gross motor and gross sensation intact. Gait is not tested. PSYCHIATRIC: Shows her to be awake and alert, oriented times three with appropriate mood and affect and conversational. Her white count today is 3.6, down from yesterday. Hemoglobin and hematocrit are 10.6 and 31.8, respectively, with a platelet count of 256. Differential shows 49% neutrophils, 35% lymphocytes, 8% monocytes. There are no immature forms and no toxic granulations. Her electrolytes are normal with a BUN and creatinine of 11 and 0.61, glucose of 89, and a calcium of 8.0. Her chest x-ray today shows the lung fully expanded to the chest wall. The pleural thickening is getting a bit better. Costophrenic angles are sharp. Chest tubes are in good place. There are no infiltrates. IMPRESSION: 1. Postoperative day #4 status post talc pleurodesis and pleural biopsies. 2. Metastatic breast cancer to the pleura and pleural fluid. Final pathology pending. 3. Hypertension. 4. Hypothyroidism. PLAN AND DISCUSSION: I will remove her chest tubes today, even though it has only been 4 days. I will wean her epidural, discontinue her [place] and plan for discharge in the morning.
--- NOTE | 2016-10-07 15:14 | REP ---
CHEST, TWO VIEWS: HISTORY: Pleural effusion. COMPARISON: 10/06/2016. There is elevation of the right hemidiaphragm. Increased density is present in the right lower lobe consistent with atelectasis or infiltrate that is unchanged compared to the previous study. The left lung is clear. The heart is normal in size. The pulmonary vasculature is normal in appearance. Two chest tubes are present in the right hemithorax. There is no pneumothorax. IMPRESSION: 1. Right lower lobe atelectasis or infiltrate unchanged compared to the previous study. 2. There is no pneumothorax. Signed by Jd Leiva MD 10/07/2016 03:16 P
[2016-10-07] MEDS: SIMVASTATIN 20 MG TAB PO SCH (20:46)
[2016-10-07] MEDS: ATENOLOL 25 MG TAB PO SCH (20:55)
[2016-10-08] MEDS: KETOROLAC 30 MG/ML VIAL (J1885) IV SCH ×2 (00:28→06:28)
[2016-10-08] MEDS: LEVALBUTEROL 1.25 MG/0.5 ML CONCENTRATE NEB NEB SCH ×2 (01:43→07:14)
[2016-10-08] MEDS: HEPARIN SOD (PORCINE) 5000 UNITS/ML VIAL SC SCH (02:00)
[2016-10-08 04:00] VITALS: BP 125/64
[2016-10-08] MEDS: LEVOTHYROXINE 0.088 MG TAB (88 MCG) PO SCH (05:26)
[2016-10-08 05:38] LABS: BASO % 0.9 % (0.0-1.0); EOS # 0.1 K/mm3 (0.0-0.50); EOS % 1.3 % (0.0-3.0); LARGE UNSTAINED CELL # 0.2 K/mm3 (0.0-0.4); LARGE UNSTAINED CELL % 4.1 % (0.0-4.0); LYMPH # 1.3 K/mm3 (1.5-4.5); LYMPH % 28.2 % (24.0-44.0); MEAN CORPUSCULAR HEMOGLOBIN 31.8 pg (27.0-33.0); MEAN CORPUSCULAR HGB CONC 32.9 g/dl (32.0-36.5); MEAN CORPUSCULAR VOLUME 96.4 fl (80.0-96.0); MONO # 0.4 K/mm3 (0.0-0.8); MONO % 8.3 % (0.0-5.0); NEUTROPHILS # 2.7 K/mm3 (1.8-7.7); NEUTROPHILS % 57.3 % (36.0-66.0); PLATELET COUNT, AUTOMATED 319 k/mm3 (150-450); RED CELL DISTRIBUTION WIDTH 14.9 % (11.5-14.5); WHITE BLOOD COUNT 4.6 K/mm3 (4.0-10.0)
[2016-10-08 05:58] LABS: ANION GAP 8 MEQ/L (8-16); BLOOD UREA NITROGEN 10 MG/DL (7-18); CALCIUM LEVEL 8.6 MG/DL (8.5-10.1); CARBON DIOXIDE LEVEL 27 MEQ/L (21-32); CHLORIDE LEVEL 105 MEQ/L (98-107); CREATININE FOR GFR 0.71 MG/DL (0.55-1.02); GLOMERULAR FILTRATION RATE > 60.0 (>51); GLUCOSE, FASTING 102 MG/DL (70-105); POTASSIUM SERUM 4.7 MEQ/L (3.5-5.1); SODIUM LEVEL 140 MEQ/L (136-145)
[2016-10-08] MEDS: SLF 3 ML SYR IV SCH (06:29)
[2016-10-08 07:30] VITALS: BP 137/75
[2016-10-08] MEDS: MOM 30ML SUSPENSION UDC PO SCH (08:53)
[2016-10-08] MEDS: DOCUSATE SODIUM 100 MG CAP PO SCH (08:53)
[2016-10-08] MEDS: PANTOPRAZOLE 40MG TAB (PROTONIX) PO SCH (08:53)
--- NOTE | 2016-10-08 18:55 | DSES ---
DATE OF ADMISSION: 10/03/2016 DATE OF DISCHARGE: 10/08/2016 DISCHARGE DIAGNOSES: 1. Metastatic breast cancer to the pleura. 2. Postoperative day 5, status post talc pleurodesis and pleural biopsy. 3. Hypertension. 4. Hypothyroidism. HOSPITAL COURSE: The patient is a 61-year-old white female with known breast cancer who has a known malignant pleural effusion. The effusion has been recurrent and she was therefore taken to the operating room where she underwent a talc pleurodesis with pleural biopsies. Pleural biopsy findings at the time of surgery included studding throughout the parietal pleura on the chest wall and the diaphragm. These were positive for estrogen receptors. She had a benign postoperative course with the expected postoperative fever from the inflammatory response secondary to the talc. Her chest tube output incrementally decreased over the next four days so that her chest tube output over the two days prior to removing the tubes were 80 and 35 30 mL respectively. Her post chest tube removal chest x-ray on the day of discharge showed her lung fully expanded to the chest wall with sharp costophrenic angles. She developed expected pleural thickening and inflammation on the chest x-ray postoperatively. She is being discharged today on her home medications, which include Tylenol 325 mg every 4 hours as needed pain for fever, atenolol 25 mg at bedtime, ibuprofen 20 mg every 6 hours as needed pain, Femara 2.5 mg every day, Synthroid 88 mcg every day, Ibrance 125 mg every day, Restasis 0.05% OU twice a day as needed dry eyes, and simvastatin 20 mg at bedtime. I will see back in the office in a week to 10 days with a chest x-ray in postoperative followup. Her discharge white count is 4.6 with a hemoglobin and hematocrit of 11.3 and 34.3 respectively and a platelet count of 319. Her electrolytes are normal with a BUN and creatinine of 10 and 0.71. Her calcium is 8.6 with a glucose of 102.
--- NOTE | 2016-10-08 19:52 | REP ---
CHEST, TWO VIEWS: Two views of the chest are performed and compared to prior study of 10/07/2016. Right chest tubes have been removed. I do not see a significant pneumothorax. Right basilar parenchymal opacity is unchanged as well as elevation of the right hemidiaphragm. There are multiple metallic clips in the axillary regions. Left lung demonstrates no new infiltrate. Cardiomediastinal silhouette is unchanged. IMPRESSION: Removal of two right chest tubes. Otherwise no change. Signed by Yovany Geiger MD 10/08/2016 07:54 P
== END 2016-10-08 10:43 | disposition home or self-care (01) | DRG 121 ==
LOC: M OR 12:05 → M PCU 17:59
PROVIDERS: ADMIT Thoracic Surgery (Cardiothoracic Vascular Surgery); ATTEND Thoracic Surgery (Cardiothoracic Vascular Surgery)
PROC: 0BBN4ZX Excision of Right Pleura, Percutaneous Endoscopic Approach, Diagnostic (ICD-10-PCS; 2016-10-03)
PROC: 3E0L3GC Introduction of Other Therapeutic Substance into Pleural Cavity, Percutaneous Approach (ICD-10-PCS; principal; 2016-10-03 14:30)
DX: C78.2 Secondary malignant neoplasm of pleura (principal); J91.0 Malignant pleural effusion; C50.911 Malignant neoplasm of unspecified site of right female breast; C50.912 Malignant neoplasm of unspecified site of left female breast; I10 Essential (primary) hypertension; E03.9 Hypothyroidism, unspecified; E78.5 Hyperlipidemia, unspecified

== ENCOUNTER → 2016-10-17 | Outpatient (CLI) | payer BC ==
--- NOTE | 2016-10-18 02:42 | REP ---
Clinical: Pleural effusion. Follow-up. Technique: PA and lateral. Comparison: 10/08/2016. Findings: Right-sided pleuroparenchymal changes including loculated pleural effusion and areas of consolidation / opacity along with chronic elevation to the right hemidiaphragm remain essentially unchanged. The patient is status post right mastectomy and axillary node dissection. Left hemithorax appears relatively clear although trace right basilar atelectasis cannot be excluded. No pneumothorax. Visualized portions of the cardiac silhouette are normal. Skeletal structures are intact. Impression: Right-sided pleuroparenchymal changes similar to prior examination. No new acute process identified. Signed by Venu Scott MD 10/18/2016 02:33 A
== END ==
LOC: M SMT 11:09
PROVIDERS: ATTEND Thoracic Surgery (Cardiothoracic Vascular Surgery)
DX: J90 Pleural effusion, not elsewhere classified (principal); Z90.11 Acquired absence of right breast and nipple

== ENCOUNTER → 2018-05-08 | Outpatient (CLI) | payer BC | LOC: M SMT 09:47 | DX: C50.911 Malignant neoplasm of unspecified site of right female breast (principal); C50.912 Malignant neoplasm of unspecified site of left female breast; J91.0 Malignant pleural effusion; Z90.11 Acquired absence of right breast and nipple | CPT/HCPCS: 71046 ==